=== PATIENT | male | born 1980 | race Caucasian/White ===

== ENCOUNTER 2022-01-03 07:58 | Outpatient (RCR) | payer OTHER, SELFPAY | END 2022-04-08 14:16 | disposition home or self-care (01) | LOC: HO.WCC 07:58 | PROVIDERS: Visit Provider Physician Assistant | DX: E11.621 Type 2 diabetes mellitus with foot ulcer (principal); L97.522 Non-pressure chronic ulcer of other part of left foot with fat layer exposed; E11.610 Type 2 diabetes mellitus with diabetic neuropathic arthropathy; L84 Corns and callosities | CPT/HCPCS: 11042; 29445; 99212; 99213 ==